=== PATIENT | female | born 1980 | race Caucasian/White ===

== ENCOUNTER 2020-10-25 04:59 | Emergency (ER) | payer BC, SELFPAY ==
[2020-10-25 05:06] VITALS: BP 145/99; PULSE 100; RESP 18; TEMP 36.8; O2SAT 97; BMI 32.5
--- NOTE | 2020-10-25 05:18 | ED_ITS ---
HPI - Back Pain/Injury General: Chief Complaint: Back Pain/Injury Stated Complaint: back pain Time Seen by Provider: 10/25/20 05:11 Source: patient Mode of arrival: ambulatory History of Present Illness: HPI Narrative: Bouchra is a 40-year-old female comes in complaining of low back pain. The pain is chronic but she states that she believes she flared it up at work in the past 2 days. She lifted something heavy at work and believes this may have twisted her back. The pain radiates down to her buttocks. She occasionally has tingling going down her right leg. She denies any loss of bowel or bladder control, numbness in her groin, leg weakness or fever. Patient has abdominal pain, burning when she urinates, upper back pain or pain in the CVA area. Patient states is the same pain she is had numerous times in the past is only been made worse because of something she is done to flared up. Patient states that usually takes pain medicine and muscle relaxers to help get control of her pain. She states she also has at rest of this to make it better. Associated symptoms: Deny abdominal pain, chills, difficulty walking, dysuria, fatigue, fever(s), hematuria, nausea, syncope, urinary urgency or vomiting Review of Systems Const: Denies: fever(s), chills, body aches, fatigue, malaise or diaphoresis Eyes: Denies: change in vision, blurry vision, photophobia, eye discomfort, eye discharge, eye redness or yellow eyes ENMT: Denies: throat pain, odynophagia, hoarseness, swelling of lips/tongue, ear or mastoid pain, ear discharge, change in hearing or nasal discharge Card: Denies: chest pain, palpitations, irregular heart rhythm, edema, lightheadedness, syncope, pre-syncope, dyspnea on exertion or orthopnea Resp: Denies: dyspnea, productive cough, non-productive cough, wheezing, hemoptysis or chest congestion GI: Denies: abdominal pain, nausea, vomiting, hematemesis, coffee ground emesis, heartburn, diarrhea, constipation, GI cramping, hematochezia or melena : Denies: flank pain, dysuria, urinary frequency, urinary urgency or hematuria Musc: Reports: back pain; Denies: neck pain, extremity pain, extremity swelling, joint pain, joint swelling, joint redness, joint warmth or joint stiffness Skin/Breast: Denies: rash, pruritus, erythema, skin pain or skin tenderness Neuro: Denies: headache(s), numbness in extremities, weakness in extremities, sensory changes, lack of coordination, difficulty walking, dizziness, vertigo, confusion, Slurred speech present or seizure-like activity Yasmany/Lymph: Denies: easy bruising, easy bleeding, petechiae, purpura or enlarged lymph nodes All/Imm: Denies: urticaria, throat swelling, tongue swelling, facial swelling or acute wheezing PFSH ED PFSH: Medical History (Updated 10/25/20 @ 05:25 by Flower Abad) Hypothyroidism Surgical History (Updated 10/25/20 @ 05:25 by Flower Abad) History of section, low transverse Female Reproductive History: Date of last menstrual period: 10/25/20 Physical Exam Const: COMMON NORMALS: no acute distress, patient oriented x3, no limitations and alert GENERAL APPEARANCE: cooperative HENMT: COMMON NORMALS: normocephalic, atraumatic, external ears normal, EAC's normal and Normal external nose present HEAD & SCALP: normal to inspection, normocephalic and atraumatic FACE & SINUS: normal facial exam and face symmetric NOSE: Normal external nose present and Normal nares present EXTERNAL EAR: Yes external ears normal EXTERNAL AUDITORY CANAL: EAC's normal MOUTH: Normal oral and palatal mucosa present, lip normal and tongue normal Eye: COMMON NORMALS: Equal, round and reactive pupils present and conjunctivae normal GENERAL EYE: appearance normal, both eyes and all related structures ALIGNMENT: Yes alignment normal PERIORBITAL: periorbital findings normal EYELID: eyelids normal CONJUNCTIVA: Yes conjunctivae normal SCLERA: sclerae normal PUPIL: Yes Equal, round and reactive pupils present Neck/C-Spine: COMMON NORMALS: full ROM, no lymphadenopathy, supple, no meningeal signs and no JVD GENERAL: Yes normal visual inspection and Yes trachea midline Chest: COMMONS NORMALS: normal inspection of the chest and normal palpation of entire chest wall Resp: COMMON NORMALS: normal respiratory effort, No retractions, No use of accessory muscles and clear to auscultation bilaterally EFFORT & INSPECTION: Yes able to speak in complete sentences and Yes symmetric chest movement AUSCULTATION: clear to auscultation bilaterally, no crackles, no rales, no rhonchi and no wheezes Cardio: COMMON NORMALS: no JVD, regular rate, regular rhythm, S1 normal heart sound present and S2 normal heart sound present RATE: regular rate RHYTHM: regular rhythm HEART SOUNDS: S1 normal heart sound present, S2 normal heart sound present, no click, no gallops, no murmurs and no rubs GI: COMMON NORMALS: Soft to palpation and No hepatosplenomegaly present PALPATION: Yes Soft to palpation, No Tenderness to palpation present (GI), No Guarding due to palpation present (GI), No Rigid due to palpation, Yes No hepatosplenomegaly present, No Hernia present, No Palpable mass present and No Pulsatile mass present : COMMON NORMALS: Yes no CVA tenderness BLADDER/KIDNEY EXAM: Yes no CVA tenderness and No CVA tenderness EXTERNAL FEMALE EXAM: No Hernia present Back/Pelvis: COMMON NORMALS: no CVA tenderness and thoracic and lumbar spine normal to inspection GENERAL BACK: No CVA tenderness THORACIC SPINE/UPPER BACK: Yes normal to inspection and Yes thoracic ROM normal LUMBAR SPINE/LOWER BACK: Yes pain with ROM, Yes paraspinal muscle tenderness, Yes paraspinal muscle spasm, Yes straight leg raise positive right and Yes bend over test abnormal Extremity: COMMON NORMALS: normal to inspection, full ROM, capillary refill normal, no joint enlargement, no clubbing, cyanosis or edema and no calf tenderness Neuro: COMMON NORMALS: patient oriented x3, CN's II-XII intact bilaterally, moves all extremities, no focal motor deficits and no sensory deficits noted SENSORIUM/ORIENTATION: Yes alert MENINGEAL SIGNS: Yes no meningeal signs SPEECH: speech normal Psych: COMMON NORMALS: mental status grossly normal, Normal thought process present, cooperative, normal affect, speech normal and activity/motor behavior normal SPEECH: Yes normal speech THOUGHT PROCESS: Normal thought process present Skin: COMMON NORMALS: no rashes or lesions noted, turgor normal, no jaundice, no petechiae and no mottling GENERAL SKIN EXAM: no rashes or lesions noted and turgor normal Course Vital Signs: Vital signs: Vital Signs Temperature 98.2 F 10/25/20 05:06 Pulse Rate 68 10/25/20 05:37 Respiratory Rate 18 10/25/20 05:37 Blood Pressure 112/78 10/25/20 05:37 Pulse Oximetry 98 10/25/20 05:37 MDM - Back Pain/Injury MDM Narrative: Medical decision making narrative: Mrs. Juarez is a very nice 40-year-old female who comes in complaining of low back pain. She has had a chronic problem with this but recently at work she has been bending, stooping and lifting heavy boxes much more than she is used to. She believes this is exacerbated her pain. Patient denies any loss of bowel or bladder control, no saddle anesthesia, no weakness of her extremities, no fever, no abdominal pain or anything else to suggest CRAFTI as a cause for her symptoms. Patient be treated with irrigations for her symptoms. I will refer her to Dr. Graves who specializes in back problems and may be able to assist her further. Differential Diagnosis: Differential diagnosis back pain/injury: Likely lumbar radiculopathy, sciatica, strain of lumbar region, renal colic, pyelonephritis, thoracic back pain, AAA and discitis Discharge Plan Discharge Patient Disposition: Home Clinical Impression: Lumbar radiculopathy Condition: Stable Prescriptions: New cyclobenzaprine 10 mg tablet 10 mg PO TID PRN (Reason: muscle spasm) Qty: 30 RF: 0 [place] 5-325 mg tablet 1 tab PO Q6H PRN (Reason: pain) 5 Days Qty: 12 RF: 0 Discharge Orders: Discharge ED (Routine); Ordered 10/25/20 Ordered By: Flower Abad Referrals: Buck Garves DO [Physician] - 1-3 days Discharge Diet: Advance as tolerated Discharge Activity: Resume usual activity Patient Instructions: Lumbar Radiculopathy (ED) Activity Restrictions/Additional Instructions: Please return to the ER immediately for any of the signs or symptoms listed on your discharge instruction sheets, worsening/changing of your symptoms, you are not getting better as quickly as expected, or for ANY other cause or concerns. Return to the ER for increased pain, fever, abdominal pain, loss of bowel or bladder control, numbness in her groin, or for any other cause for concern. 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
[2020-10-25] MEDS: cyclobenzaprine 10 mg Tablet PO (05:29)
[2020-10-25] MEDS: HYDROcodone-acetaminophen 5-325 mg Tablet 1 TAB PO (05:29)
[2020-10-25] MEDS: ketorolac 60 mg/2 mL INJ IM (05:30)
[2020-10-25 05:37] VITALS: BP 112/78; PULSE 68; RESP 18; O2SAT 98
== END 2020-10-25 05:39 | disposition home or self-care (01) ==
PROVIDERS: Emergency Provider Emergency Medicine
DX: M54.16 Radiculopathy, lumbar region (principal)
CPT/HCPCS: 12345; 96372; 99281; 99283; J1885

== ENCOUNTER → 2020-10-27 13:12 | Outpatient (BNVA) | payer BC, SELFPAY | PROVIDERS: Visit Provider Orthopaedic Surgery | DX: M54.16 Radiculopathy, lumbar region (principal); M47.896 Other spondylosis, lumbar region | CPT/HCPCS: 72114 ==

== ENCOUNTER 2020-11-09 09:04 | Outpatient (CLI) | payer BC, SELFPAY ==
--- NOTE | 2020-11-09 09:12 | MR_ITS ---
WS: [id number] MRI LUMBAR SPINE NONCONTRAST TECHNIQUE: Sagittal T1, T2 and STIR imaging. Axial T1 and T2 imaging. CLINICAL INFORMATION: M54.16 - Radiculopathy, lumbar region COMPARISON: None. FINDINGS: Mild lumbar curve. No acute compression. Mild disc bulging L4-L5 and L5-S1. Tiny annular tear at L5-S 1. No high-grade central canal stenosis. L1-L2: Normal. L2-L3: Mild facet arthropathy. Spinal canal and foramen are patent. L3-L4: No significant disc bulging. Mild facet arthropathy. Spinal canal and foramen are patent. L4-L5: Mild disc bulging with slight effacement of the ventral thecal sac. Mild to moderate facet art hropathy. Small bilateral foraminal protrusions with mild bilateral foraminal narrowing. L5-S1: Mild annular bulging with a tiny annular fissure. Slight effacement of ventral thecal sac. Tin y shallow central protrusion. Spinal canal and foramen are patent. Mild facet arthropathy. Visualized pelvic bony structures: Normal. Paravertebral soft tissues: Normal. MR/MR lumbar spine wo con* [id number] IMPRESSION: 1. Mild lumbar curve. No acute compression. No high-grade central canal stenos is. 2. Tiny shallow central protrusion L5-S1 with a tiny annular tear and slight e ffacement of the ventral thecal sac. 3. Small bilateral foraminal protrusions L4-5 with mild bilateral foraminal na rrowing. 4. Mild facet arthropathy L3-L5.
== END 2020-11-09 09:05 | disposition home or self-care (01) ==
LOC: RADWPI 09:08
PROVIDERS: Visit Provider Orthopaedic Surgery
DX: M54.16 Radiculopathy, lumbar region (principal); M47.816 Spondylosis without myelopathy or radiculopathy, lumbar region; M51.26 Other intervertebral disc displacement, lumbar region; M51.27 Other intervertebral disc displacement, lumbosacral region
CPT/HCPCS: 72148

== ENCOUNTER → 2021-06-14 10:55 | Outpatient (BNVA) | payer BC, SELFPAY | PROVIDERS: Visit Provider Family Medicine | DX: E89.0 Postprocedural hypothyroidism (principal); G89.29 Other chronic pain; M51.16 Intervertebral disc disorders with radiculopathy, lumbar region | CPT/HCPCS: 80053; 85025 ==

== ENCOUNTER 2021-07-05 11:39 | Outpatient (RCR) | payer BC, SELFPAY | END 2021-07-11 23:59 | disposition home or self-care (01) | LOC: SPT 11:39 | PROVIDERS: PCP Family Medicine; Referring Provider Family Medicine; Visit Provider Family Medicine | DX: M51.16 Intervertebral disc disorders with radiculopathy, lumbar region (principal); G89.29 Other chronic pain; E89.0 Postprocedural hypothyroidism; E03.9 Hypothyroidism, unspecified; Z76.89 Persons encountering health services in other specified circumstances | CPT/HCPCS: 97161 ==

== ENCOUNTER 2021-07-12 06:00 | Outpatient (RCR) | payer BC, SELFPAY | END 2021-08-10 23:59 | disposition home or self-care (01) | LOC: SPT 06:00 | PROVIDERS: PCP Family Medicine; Referring Provider Family Medicine; Visit Provider Family Medicine | DX: M51.16 Intervertebral disc disorders with radiculopathy, lumbar region (principal); M54.5 Low back pain; G89.29 Other chronic pain; E89.0 Postprocedural hypothyroidism; E03.9 Hypothyroidism, unspecified | CPT/HCPCS: 97110 ==

== ENCOUNTER → 2021-08-01 10:35 | Outpatient (BNVA) | payer BC, SELFPAY | PROVIDERS: PCP Family Medicine; Visit Provider Nurse Practitioner Family | DX: Z20.822 Contact with and (suspected) exposure to COVID-19 (principal) | CPT/HCPCS: 87426 ==

== ENCOUNTER → 2021-08-14 16:26 | Outpatient (BNVA) | payer BC, SELFPAY | PROVIDERS: PCP Family Medicine; Visit Provider Family Medicine | DX: R10.9 Unspecified abdominal pain (principal); R11.2 Nausea with vomiting, unspecified; R19.7 Diarrhea, unspecified; M51.16 Intervertebral disc disorders with radiculopathy, lumbar region; G89.29 Other chronic pain | CPT/HCPCS: 80053; 83690; 85025; 86140; 87493; 87506 ==

== ENCOUNTER → 2021-08-30 10:09 | Outpatient (BNVA) | payer BC, SELFPAY | PROVIDERS: PCP Family Medicine; Visit Provider Nurse Practitioner Family | DX: Z20.822 Contact with and (suspected) exposure to COVID-19 (principal); J06.9 Acute upper respiratory infection, unspecified | CPT/HCPCS: 87635 ==

== ENCOUNTER 2021-09-20 06:48 | Outpatient (CLI) | payer BC, SELFPAY ==
--- NOTE | 2021-09-20 06:51 | US_ITS ---
WS: [id number] RIGHT UPPER QUADRANT ULTRASOUND HISTORY: RUQ pain, post-prandial N/V/D COMPARISON: None available. Liver: 17.2 cm in length. Normal size liver. No bile duct dilatation or mass. Gallbladder: Normally distended gallbladder with no stones or wall thickening. CBD: 0.5 cm Pancreas: Normal size and echogenicity. Right kidney: 11.7 cm in length. Normal size and echogenicity. No hydronephrosis or mass. Aorta and IVC: Unremarkable abdominal aorta and IVC. No ascites. US/US abdomen limited [id number] IMPRESSION: Normal RIGHT upper quadrant ultrasound.
== END 2021-09-20 06:49 | disposition home or self-care (01) ==
LOC: RAD 06:49
PROVIDERS: PCP Family Medicine; Visit Provider Family Medicine
DX: R10.13 Epigastric pain (principal); R11.2 Nausea with vomiting, unspecified; R19.7 Diarrhea, unspecified
CPT/HCPCS: 76705; 93976

== ENCOUNTER → 2021-11-27 09:21 | Outpatient (BNVA) | payer BC, SELFPAY | PROVIDERS: PCP Family Medicine; Visit Provider Nurse Practitioner Family | DX: Z20.822 Contact with and (suspected) exposure to COVID-19 (principal) | CPT/HCPCS: 87635 ==

== ENCOUNTER 2022-09-26 15:35 | Emergency (ER) | payer BC, SELFPAY ==
[2022-09-26 15:40] VITALS: BP 130/89; PULSE 96; RESP 14; TEMP 36.9; O2SAT 100; BMI 28.5
--- NOTE | 2022-09-26 16:13 | ED_ITS ---
HPI - Ear Problem General: Chief complaint: Ear Stated complaint: Right ear pain and bleeding Time Seen by Provider: 09/26/22 15:44 History of Present Illness: Patient is a 42-year-old female comes to the ED with right ear pain. She has been dealing with sinus congestion and drainage for approximately a week. Today she felt like she had a lot of pressure in her sinuses and started getting pain in her right ear. Pain has increased and she rates it currently a 7 out of 10. She endorses having a bloody discharge from right ear as well. Endorses having a harder time hearing out of right ear says sounds are muffled in right ear. Associated symptoms: Reports ear or mastoid pain (Right ear); Denies fever(s), headache(s) or neck pain Review of Systems Const: Denies: fever(s), chills or fatigue Eyes: Denies: change in vision or eye discomfort ENMT: Reports: ear or mastoid pain (Right ear) and ear discharge (Right ear bloody discharge); Denies: throat pain, odynophagia, nasal discharge or nasal congestion Card: Denies: chest pain, palpitations, edema, swelling of feet/ankles, dyspnea on exertion or orthopnea Resp: Denies: dyspnea, productive cough or non-productive cough GI: Denies: abdominal pain, nausea, vomiting, diarrhea, constipation or hematochezia : Denies: flank pain, dysuria or hematuria Musc: Denies: neck pain, back pain or extremity swelling Skin/Breast: Denies: rash or new lesions Neuro: Denies: headache(s), numbness in extremities or weakness in extremities PFS ED PFSH: Medical History Hypothyroidism Surgical History History of section, low transverse Social History Smoking and tobacco status: never smoked Second hand smoke exposure: No Alcohol intake: current Alcohol intake frequency: holidays/special occasions only Desire information about substance/drug rehabilitation?: No Female Reproductive History: Date of last menstrual period: 10/25/20 Spontaneous abortions: No Physical Exam Const: COMMON NORMALS: patient oriented x3 and alert GENERAL APPEARANCE: cooperative and comfortable HENMT: COMMON NORMALS: normocephalic and external ears normal HEAD & SCALP: normocephalic EXTERNAL EAR: Yes external ears normal EXTERNAL AUDITORY CANAL: Abnormal EAC present EAC laterality: right Details: otic discharge Details: bloody TYMPANIC MEMBRANE: TM normal on the left and TM abnormal TM laterality: right Details: bulging, erythematous and perforation Details: with bloody discharge MOUTH: Normal oral and palatal mucosa present THROAT: posterior oropharynx normal and uvula midline Neck/C-Spine: COMMON NORMALS: supple GENERAL: Yes normal visual inspection Resp: COMMON NORMALS: normal respiratory effort, No retractions, No use of accessory muscles and clear to auscultation bilaterally AUSCULTATION: clear to auscultation bilaterally Cardio: COMMON NORMALS: regular rate, regular rhythm, S1 normal heart sound present, S2 normal heart sound present, No gallops present (Cardio), No clicks present (Cardio), No murmurs present (Cardio) and Peripheral pulses 2+ throughout RATE: regular rate RHYTHM: regular rhythm HEART SOUNDS: S1 normal heart sound present and S2 normal heart sound present PERIPHERAL PULSES: Peripheral pulses 2+ throughout GI: COMMON NORMALS: Normal to inspection, nondistended, normoactive bowel sounds present, Soft to palpation, non-tender and no masses PALPATION: Yes Soft to palpation : COMMON NORMALS: Yes no CVA tenderness BLADDER/KIDNEY EXAM: Yes no CVA tenderness Back/Pelvis: COMMON NORMALS: no CVA tenderness Extremity: COMMON NORMALS: normal to inspection Neuro: COMMON NORMALS: patient oriented x3 SENSORIUM/ORIENTATION: Yes alert GAIT: Yes Normal gait present Skin: GENERAL SKIN EXAM: dry skin Course Vital Signs: Vital signs: Vital Signs Temperature 98.4 F 09/26/22 15:40 Pulse Rate 96 09/26/22 15:40 Respiratory Rate 14 09/26/22 15:40 Blood Pressure 130/89 09/26/22 15:40 Pulse Oximetry 100 09/26/22 15:40 Oxygen Delivery Me thod 09/26/22 15:40 MDM - Ear Medical Decision Making Patient is a 42-year-old female comes to the ED with right ear pain and bloody discharge from ear. Exam of patient shows right ear otitis media with perforation and bloody discharge in canal. I placed order with case management for patient to be referred to ENT specialist for follow-up. Patient was discharged home with a prescription for amoxicillin and Ciprodex eardrops. Return ED precautions given. Follow-up with PCP within the next week as well for reevaluation. Patient understood and agreed with plan Discharge Plan Discharge Patient Disposition: Home Clinical Impression: Acute otitis media of right ear with perforation Condition: Stable Prescriptions: New amoxicillin 500 mg capsule 500 mg PO BID 10 Days Qty: 20 0RF ciprofloxacin-dexamethasone 0.3-0.1 % drops,suspension 4 drp otic (ear) BID 7 Days Qty: 7.5 0RF No Action fluticasone propionate [Allergy Relief (fluticasone)] 50 mcg/actuation spray,suspension 1 spray intranasal DAILY Rx Instructions: administer into each nostril buspirone 5 mg tablet 5 mg PO TID PRN (Reason: anxiety) Qty: 60 2RF tizanidine 4 mg tablet 4 mg PO BID PRN (Reason: muscle spasticity) Qty: 60 2RF levothyroxine [Levo-T] 25 mcg tablet 25 mcg PO DAILY Qty: 90 3RF Discharge Orders: Discharge ED (Routine); Ordered 09/26/22 Ordered By: Antonio Moon Referrals: Noah Fernandez DO [Primary Care Provider] - Discharge Diet: Regular Discharge Activity: Increase activity as tolerated Patient Instructions: Otitis Media - Adult, Ruptured Eardrum (ED) Activity Restrictions/Additional Instructions: Follow-up with medical provider as directed. Case management should be calling you in the next several days to set up an appointment with an ear nose and throat doctor for follow-up right ear. Take medications as prescribed. Take [id number] Tylenol or ibuprofen for pain. Return to the ER or your medical provider if condition worsens. Please read and understand discharge instructions. Thank you for choosing [facility] for your healthcare needs today. Please realize this is an emergency room and that we are providing you with a medical screening exam and this may not be complete and all inclusive of all the testing and or work up that you may need to determine your ailment or severity of your illness. It is very important that you follow up as instructed or that you return to the Emergency Department should you have concerns or if your condition changes or worsens in any way. 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
[2022-09-26] MEDS: HYDROcodone-acetaminophen 5-325 mg Tablet 1 TAB PO (16:30)
[2022-09-26 16:31] VITALS: BP 130/68; PULSE 97; RESP 16; TEMP 36.9; O2SAT 100
--- NOTE | 2022-09-27 09:25 | PC.SOCIAL ---
Addendum entered by Monik Dukes 12/14/22 14:28: Patient had a follow up appointment scheduled with ENT - patient did attend appointment Addendum entered by Monik Dukes 10/31/22 12:47: Patient has a follow up appointment scheduled for Saturday, November 21, 2021 at 10:00 at ENT. Clinic will call patient with appointment information. Original Note: ENT Follow-Up Consult received for ENT follow up. Sent to ENT scheduling. Clinic to contact patient with appt date/time.
== END 2022-09-26 16:35 | disposition home or self-care (01) ==
PROVIDERS: Emergency Provider Physician Assistant; PCP Family Medicine
DX: H66.91 Otitis media, unspecified, right ear (principal); H72.91 Unspecified perforation of tympanic membrane, right ear
CPT/HCPCS: 99283

== ENCOUNTER 2023-06-15 11:26 | Emergency (ER) | payer OTHER, SELFPAY ==
[2023-06-15 11:29] VITALS: BP 124/80; PULSE 103; RESP 16; TEMP 36.3; O2SAT 100
--- NOTE | 2023-06-15 11:38 | ECG_ITS ---
[facility] Test Date: 2023-06-15 Pat Name: Bouchra Francis Department: Room: Gender: Female Clinical Writer: : 1980 Requested By: Alex Lindo Order Number: [id number] Moshe MD: Syed Guillen M.D. Measurements Intervals [place] Rate: 91 P: 67 MN: 148 QRS: 74 QRSD: 93 T: 50 QT: 363 QTc: 448 Interpretive Statements SINUS RHYTHM NONSPECIFIC T-WAVE ABNORMALITY No previous ECG available for comparison Electronically Signed On 06-15-2023 13:09:33 CDT by Syed Guillen M.D. [email or web address]
--- NOTE | 2023-06-15 12:25 | W.ED.CHESTPA ---
HPI - Chest Pain General: Chief Complaint: Chest Pain Stated Complaint: High HR, High BP Time Seen by Provider: 06/15/23 12:09 History of Present Illness: Ms. Juarez is a 43-year-old lady with history of thyroid disorder status post thyroidectomy presented the emergency department for generalized illness. She woke up with palpitations that woke her from sleep at approximately 8 AM. She has had heart rate at that time that was 80s however notes that her blood pressure was higher and a little bit of pulse variability. She has associated shortness of breath generalized malaise with chest discomfort. She feels slowed though also has a headache and history of headache disorder with left-sided throbbing headache. She does have photosensitivity. Moderate intensity symptoms. Persistent course. No other specific changes in health, exacerbating, or alleviating factors identified. Onset (ago): hour(s) Timing of current episode: constant Exacerbating factors: exertion Associated symptoms: Reports dyspnea, nausea, palpitations and other Review of Systems General: Reports: 10 or more systems reviewed and unremarkable except in HPI and below Card: Reports: palpitations Resp: Reports: dyspnea GI: Reports: nausea PFSH ED PFSH: Medical History Graves disease Hx of meningitis Hypothyroidism Menorrhagia Thyroid toxicity, exogenous Surgical History History of section, low transverse Social History Smoking and tobacco status: current every day smoker e-cigarettes E-Cigarette Details: vaporizer device and with nicotine Second hand smoke exposure: No Alcohol intake: current Alcohol intake frequency: holidays/special occasions only Substance/Drug Use: former Desire information about substance/drug rehabilitation?: No Female Reproductive History: Spontaneous abortions: No Physical Exam Const: COMMON NORMALS: patient oriented x3 and alert GENERAL APPEARANCE: cooperative and well developed HENMT: COMMON NORMALS: normocephalic and atraumatic HEAD & SCALP: normocephalic and atraumatic Eye: COMMON NORMALS: conjunctivae normal CONJUNCTIVA: Yes conjunctivae normal SCLERA: sclerae normal Neck/C-Spine: COMMON NORMALS: supple GENERAL: Yes trachea midline Resp: COMMON NORMALS: clear to auscultation bilaterally EFFORT & INSPECTION: Yes able to speak in complete sentences AUSCULTATION: clear to auscultation bilaterally Cardio: COMMON NORMALS: regular rate and regular rhythm RATE: regular rate RHYTHM: regular rhythm GI: COMMON NORMALS: Soft to palpation PALPATION: Yes Soft to palpation and No Tenderness to palpation present (GI) Extremity: GENERAL: Yes normal exam except as noted and No edema Neuro: COMMON NORMALS: patient oriented x3, CN's II-XII intact bilaterally, moves all extremities, no focal motor deficits and no sensory deficits noted SENSORIUM/ORIENTATION: Yes alert and No Orientation impaired Psych: COMMON NORMALS: mental status grossly normal and Normal thought process present THOUGHT PROCESS: Normal thought process present Course Vital Signs: Vital signs: Vital Signs Temperature 97.4 F L 06/15/23 11:29 Pulse Rate 78 06/15/23 16:53 Respiratory Rate 18 06/15/23 16:53 Blood Pressure 114/66 06/15/23 13:44 Pulse Oximetry 97 06/15/23 16:53 Oxygen Delivery Me thod Room Air 06/15/23 11:29 MDM - Chest Pain Medical Decision Making 43-year-old lady presenting with heart rate abnormality and generalized illness. Exam as above. Nontoxic. No focal neurodeficits. EKG demonstrates sinus rhythm with normal axis and intervals, no STEMI. EKG with no significant hematologic or metabolic abnormality to explain symptoms. Elevated TSH with low free T4 though clinical history is not consistent with myxedema coma. No clear evidence of UTI given absence of symptoms and squamous epithelial contamination. No COVID. Chest x-ray with no lobar consolidation or pneumothorax. Somewhat improved with antiemetic, analgesia, fluids. The results of ED evaluation were discussed with the patient including prescriptions and/or symptomatic cares (if applicable) including appropriate and responsible use, followup plan, and return precautions. The patient verbalized understanding and felt safe for discharge. Medical Records I reviewed the patient's medical records. Lab Data I reviewed the patient's lab results. 06/15/23 13:12 06/15/23 13:12 Radiology Impressions Chest X-Ray 06/15/23 12:32 IMPRESSION: Mild hyperexpansion without pneumonia. Laboratory Results WBC 8.3 10^3/uL (4.0-10.0) 06/15/23 13:12 RBC 4.55 10^6/uL (4.1-5.3) 06/15/23 13:12 Hgb 13.1 g/dL (11.5-15.3) 06/15/23 13:12 Hct 41.0 % (37.0-47.0) 06/15/23 13:12 MCV 90.1 fl (81-99) 06/15/23 13:12 MCH 28.8 pg (28.0-34.0) 06/15/23 13:12 MCHC 32.0 g/dL (30.0-36.0) 06/15/23 13:12 RDW 12.3 % (12.1-15.1) 06/15/23 13:12 Plt Count 215 10^3/cmm (130-400) 06/15/23 13:12 MPV 9.8 fL (7.4-10.4) 06/15/23 13:12 Neut % (Auto) 50.2 % 06/15/23 13:12 Lymph % (Auto) 37.2 % 06/15/23 13:12 [place] % (Auto) 10.9 % 06/15/23 13:12 Eos % (Auto) 0.8 % 06/15/23 13:12 Baso % (Auto) 0.7 % 06/15/23 13:12 Neut # (Auto) 4.13 10^3/uL (1.8-7.7) 06/15/23 13:12 Lymph # (Auto) 3.1 10^3/uL (0.8-4.8) 06/15/23 13:12 [place] # (Auto) 0.9 10^3/uL (0.2-0.9) 06/15/23 13:12 Eos # (Auto) 0.1 10^3/uL (0.0-0.8) 06/15/23 13:12 Baso # (Auto) 0.1 10^3/uL (0.0-0.1) 06/15/23 13:12 Nucleated RBC % (auto) 0 % 06/15/23 13:12 Nucleated RBCs # 0.0 /100WBC 06/15/23 13:12 Sodium 140 mmol/L (136-145) 06/15/23 13:12 Potassium 4.4 mmol/L (3.5-5.1) 06/15/23 13:12 Chloride 107 mmol/L (98-107) 06/15/23 13:12 Carbon Dioxide 24 mmol/L (22-29) 06/15/23 13:12 Anion Gap 13.4 (5-19) 06/15/23 13:12 BUN 11 mg/dL (6-20) 06/15/23 13:12 Creatinine 0.8 mg/dL (0.5-0.9) 06/15/23 13:12 GFR Calculation 79.0 mL/min (90-130) L 06/15/23 13:12 Glucose 71 mg/dL (65-115) 06/15/23 13:12 Calculated Osmolality 288 mOsm/kg (285-295) 06/15/23 13:12 Calcium 8.8 mg/dL (8.5-10.5) 06/15/23 13:12 Magnesium 2.1 mg/dL (1.7-2.3) 06/15/23 13:12 Total Bilirubin 0.2 mg/dL (0.15-1.2) 06/15/23 13:12 AST 11 U/L (0-32) 06/15/23 13:12 ALT 9 U/L (0-33) 06/15/23 13:12 Alkaline Phosphatase 60 U/L (35-105) 06/15/23 13:12 Troponin T Baseline 6 ng/L (0-10) 06/15/23 13:12 Total Protein 6.9 g/dL (6.6-8.7) 06/15/23 13:12 Albumin 4.3 g/dL (3.5-5.2) 06/15/23 13:12 Globulin 2.6 g/dL (1.3-4.6) 06/15/23 13:12 TSH 36.71 uIU/mL (0.27-4.20) H 06/15/23 13:12 Free T4 0.53 ng/dL (0.82-1.77) L 06/15/23 13:12 Urine Color Straw (Yellow) 06/15/23 13:57 Urine Appearance Clear (CLEAR) 06/15/23 13:57 Urine pH 5 (5-7) 06/15/23 13:57 Ur Specific [place] 1.025 (1.005-1.030) 06/15/23 13:57 Urine Protein Neg (Negative) 06/15/23 13:57 Urine Glucose (UA) Norm (Normal) 06/15/23 13:57 Urine Ketones 1+ (Negative) H 06/15/23 13:57 Urine Blood Neg (Negative) 06/15/23 13:57 Urine Nitrate Negative (Negative) 06/15/23 13:57 Urine Bilirubin Neg (Negative) 06/15/23 13:57 Urine Urobilinogen Norm mg/dL (Negative) 06/15/23 13:57 Ur Leukocyte Esterase Trace (Negative) H 06/15/23 13:57 Urine RBC None /hpf (0-2) 06/15/23 13:57 Urine WBC 0-4 /hpf (0-5) H 06/15/23 13:57 Ur Squamous Epith Cells 5-10 /hpf (0-5) H 06/15/23 13:57 Amorphous Sediment Not Reportable 06/15/23 13:57 Urine Bacteria 1+ /hpf (NONE) H 06/15/23 13:57 Urine Mucus 1+ /hpf 06/15/23 13:57 SARS-CoV-2 Ag (Rapid) negative (Negative) 06/15/23 13:28 Discharge Plan Discharge Patient Disposition: Home Clinical Impression: Malaise and fatigue, Palpitations, Headache, Abnormal finding on thyroid function test Condition: Stable Prescriptions: No Action fluticasone propionate [Allergy Relief (fluticasone)] 50 mcg/actuation spray,suspension 1 spray intranasal TID Rx Instructions: administer into each nostril Excedrin Migraine 250-250-65 mg Tablet 3 tab PO Q6H PRN (Reason: Migraine Headache) Euthyrox 25 mcg tablet 25 mcg PO DAILY@1530 Discharge Orders: Discharge ED (Routine); Ordered 06/15/23 Ordered By: Alex Lindo Referrals: Noah Fernandez DO [Primary Care Provider] - Discharge Diet: Usual diet Discharge Activity: Increase activity as tolerated Patient Instructions: Chest Pain (ED) Activity Restrictions/Additional Instructions: Thank you for visiting the emergency department. You were seen about for generalized illness with palpitations. The exact cause of your symptoms is unclear however does not appear to need hospitalization at this time. Your free T4 is low. Please follow-up with your primary care provider. You may use [id number] medications such as acetaminophen and ibuprofen for pain however please do not exceed the daily recommended dosage as listed on the packaging and please keep in mind that many namebrand medications contain the same active ingredients. Please avoid these medications if previously instructed to do so by another physician due to other underlying medical condition. Please ensure that you are staying hydrated. Return for anything that you are concerned about and feel needs emergency department evaluation Coding Level of Care Code ED Requirements Engineer for Hiwot Bravo
--- NOTE | 2023-06-15 12:29 | ECG_ITS ---
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 Measurements Intervals [place] Rate: 78 P: 58 AR: 158 QRS: 71 QRSD: 97 T: 56 QT: 374 QTc: 427 Interpretive Statements SINUS RHYTHM Compared to ECG 06/15/2023 11:41:43 T-wave abnormality no longer present Electronically Signed On 06-16-2023 19:39:53 CDT by Syed Guillen M.D. [id number]
--- NOTE | 2023-06-15 12:32 | XR_ITS ---
WS: [id number] PORTABLE CHEST HISTORY: sob COMPARISON: None available. Very mild hyperinflation. Probably related to smoking history. No pneumonia. No pleural effusion or p neumothorax. Cardiac size: Normal. Mediastinum/Aorta: Normal mediastinum. No osseous abnormality seen. XR/XR chest 1V portable [id number] IMPRESSION: Mild hyperexpansion without pneumonia.
[2023-06-15] MEDS: sodium chloride 0.9% 1,000 ML 999 ML IV (13:06)
[2023-06-15] MEDS: metoclopramide 5 mg/mL SDV 2 mL 10 MG IVP (13:06)
[2023-06-15] MEDS: ketorolac 30 mg/mL INJ 15 MG IVP (13:07)
[2023-06-15 13:32] LABS: Basophils # 0.1 10^3/uL (0.0-0.1); Basophils % 0.7 %; Eosinophils # 0.1 10^3/uL (0.0-0.8); Eosinophils % 0.8 %; Hemoglobin 13.1 g/dL (11.5-15.3); Lymphocytes # 3.1 10^3/uL (0.8-4.8); Lymphocytes % 37.2 %; Mean Corpuscular Hemoglobin 28.8 pg (28.0-34.0); Mean Corpuscular Volume 90.1 fl (81-99); Mean Platelet Volume 9.8 fL (7.4-10.4); Monocytes # 0.9 10^3/uL (0.2-0.9); Monocytes % 10.9 %; Neutrophils # 4.13 10^3/uL (1.8-7.7); Neutrophils % 50.2 %; Nucleated Red Blood Cells % 0 %; Platelet Count 215 10^3/cmm (130-400); Red Blood Count 4.55 10^6/uL (4.1-5.3); Red Cell Distribution Width 12.3 % (12.1-15.1); White Blood Count 8.3 10^3/uL (4.0-10.0)
[2023-06-15 13:44] VITALS: BP 114/66; PULSE 72; RESP 16; O2SAT 98
[2023-06-15 13:54] LABS: Troponin(5th) Baseline 6 ng/L (0-10)
[2023-06-15 14:00] LABS: SARS Covid-2 Antigen negative (Negative)
[2023-06-15 14:01] LABS: Alanine Aminotransferase 9 U/L (0-33); Albumin Level 4.3 g/dL (3.5-5.2); Alkaline Phosphatase 60 U/L (35-105); Anion Gap 13.4 (5-19); Aspartate Amino Transferase 11 U/L (0-32); Blood Urea Nitrogen 11 mg/dL (6-20); Calcium 8.8 mg/dL (8.5-10.5); Carbon Dioxide 24 mmol/L (22-29); Chloride 107 mmol/L (98-107); Globulin 2.6 g/dL (1.3-4.6); Glucose 71 mg/dL (65-115); Magnesium 2.1 mg/dL (1.7-2.3); Osmolality Calculated 288 mOsm/kg (285-295); Potassium 4.4 mmol/L (3.5-5.1); Sodium 140 mmol/L (136-145); Thyroid Stimulating Hormone 36.71 uIU/mL (0.27-4.20); Total Bilirubin 0.2 mg/dL (0.15-1.2); Total Protein 6.9 g/dL (6.6-8.7)
[2023-06-15 14:25] LABS: Add Urine Microscopic? YES; Bacteria Urine 1+ /hpf; Bilirubin Urine Neg (Negative); Blood Urine Neg (Negative); Glucose Urine UA Norm (Normal); Ketones Urine 1+ (Negative); Leukocyte Esterase Urine Trace (Negative); Mucus Urine 1+ /hpf; Nitrate Urine Negative (Negative); Protein Urine Neg (Negative); Specific Gravity, Urine 1.025 (1.005-1.030); Urine Appearance Clear (CLEAR); Urine Color Straw (Yellow); Urobilinogen Urine Norm (Negative); WBC Urine 0-4 /hpf (0-5); pH Urine 5 (5-7)
[2023-06-15 14:26] LABS: Add Urine Culture? No
--- NOTE | 2023-06-15 14:46 | ECG_ITS ---
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 Measurements Intervals [place] Rate: 65 P: 46 MO: 168 QRS: 60 QRSD: 90 T: 52 QT: 401 QTc: 418 Interpretive Statements SINUS RHYTHM Compared to ECG 06/15/2023 12:29:31 No significant changes Electronically Signed On 06-16-2023 19:57:24 CDT by Syed Guillen M.D. [id number]
[2023-06-15 15:00] VITALS: PULSE 77; RESP 16
[2023-06-15 15:23] LABS: Free T4 Free Thyroxine 0.53 ng/dL (0.82-1.77)
--- NOTE | 2023-06-15 15:28 | PC.NURSE ---
Patient refused 2Hour trop level to be drawn. Patient stated it is not needed. MD made aware. 2hour trop canceled.
[2023-06-15 16:53] VITALS: PULSE 78; RESP 18; O2SAT 97
== END 2023-06-15 16:56 | disposition home or self-care (01) ==
PROVIDERS: Emergency Provider Emergency Medicine; PCP Family Medicine
DX: R00.2 Palpitations (principal); R51.9 Headache, unspecified; R53.81 Other malaise; R53.83 Other fatigue; R94.6 Abnormal results of thyroid function studies; Z20.822 Contact with and (suspected) exposure to COVID-19; F17.290 Nicotine dependence, other tobacco product, uncomplicated
CPT/HCPCS: 71045; 80053; 81001; 83735; 84439; 84443; 84484; 85025; 87426; 93005; 96374; 96375; 99285; J1885; J2765; J7030

== ENCOUNTER → 2023-10-31 10:27 | Outpatient (BNVA) | payer OTHER, SELFPAY | PROVIDERS: PCP Family Medicine; Visit Provider Family Medicine | DX: E03.9 Hypothyroidism, unspecified (principal) | CPT/HCPCS: 80053; 84439; 84443; 85025 ==

== ENCOUNTER 2024-03-21 05:38 | Emergency (ER) | payer OTHER, SELFPAY ==
--- NOTE | 2024-03-21 05:40 | XRR_ITS ---
PROCEDURE INFORMATION: Exam: XR Chest Exam date and time: 03/21/2024 5:55 AM Age: 44 years old Clinical indication: Chest pressure; Patient HX: C/O chest pain TECHNIQUE: Imaging protocol: Radiologic exam of the chest. Views: 1 view. COMPARISON: CR XR chest 1V portable [id number] 06/15/2023 12:39 PM FINDINGS: Lungs: Unremarkable. No consolidation. Pleural spaces: Unremarkable. No pleural effusion. No pneumothorax. Heart/Mediastinum: Unremarkable. No cardiomegaly. Bones/joints: Unremarkable. XR/XR chest 1V portable [id number] IMPRESSION: No acute findings.
[2024-03-21 05:42] VITALS: BP 169/122; PULSE 92; RESP 18; TEMP 36.8; O2SAT 99; BMI 34.7
--- NOTE | 2024-03-21 05:43 | ECG_ITS ---
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 Measurements Intervals [place] Rate: 84 P: 56 [place]: 156 QRS: 64 QRSD: 84 T: 55 QT: 370 QTc: 438 Interpretive Statements SINUS RHYTHM WITH OCCASIONAL VENTRICULAR PREMATURE COMPLEXES POSSIBLE LEFT ATRIAL ENLARGEMENT [-0.1mV P-WAVE IN V1/V2] Compared to ECG 06/15/2023 14:46:11 Ventricular premature complex(es) now present Electronically Signed On 03-21-2024 19:50:31 CDT by Syed Guillen M.D. [id number]
--- NOTE | 2024-03-21 05:49 | ED_ITS ---
Documented by User: Navin Ji DO 03/21/24 05:52 HPI - Chest Pain 2 General: Chief Complaint: Chest Pain Stated Complaint: CP Time Seen by Provider: 03/21/24 05:40 History of Present Illness: Patient presents to the ER complaining of chest pain and palpitations. States she been having palpitations on a daily basis for about the last 3 months or so. She has also had intermittent chest pain during this time. Patient states that this chest pain this time started about 5:00 at work. She was not do anything strenuous. Patient denies any nausea vomiting diaphoresis or shortness of breath. Patient is on a thyroid medicine that she says she has been taking. Review of Systems 2 General: Reports: 10 or more systems reviewed and unremarkable except in HPI and below PFSH ED 2 PFSH: Medical History Graves disease Thyroid toxicity, exogenous Hx of meningitis Menorrhagia Hypothyroidism Surgical History History of section, low transverse Social History Smoking and tobacco/nicotine status: current every day tobacco/nicotine user e- cigarettes E-Cigarette Details: vaporizer device and with nicotine Second hand smoke exposure: No Alcohol intake: current Alcohol intake frequency: holidays/special occasions only Substance/Drug Use: current Substance/Drug use frequency: daily Female Reproductive History: Spontaneous abortions: No Physical Exam 2 Const: COMMON NORMALS: no acute distress, average body habitus, patient oriented x3, no limitations, healthy appearing, alert and well nourished HENMT: COMMON NORMALS: normocephalic, atraumatic, hearing grossly normal bilaterally, external ears normal, Normal external nose present, moist oral mucous membranes and oropharynx normal HEAD & SCALP: normocephalic and atraumatic NOSE: Normal external nose present EXTERNAL EAR: Yes external ears normal Neck/C-Spine: COMMON NORMALS: no JVD Chest: COMMONS NORMALS: normal inspection of the chest and normal palpation of entire chest wall Resp: COMMON NORMALS: normal respiratory effort, No retractions, No use of accessory muscles and clear to auscultation bilaterally AUSCULTATION: clear to auscultation bilaterally Cardio: COMMON NORMALS: no JVD, regular rate, regular rhythm, S1 normal heart sound present, S2 normal heart sound present, No gallops present (Cardio), No clicks present (Cardio), No murmurs present (Cardio) and No rub (Cardio) R ATE: regular rate RHYTHM: regular rhythm HEART SOUNDS: S1 normal heart sound present and S2 normal heart sound present GI: COMMON NORMALS: Normal to inspection, nondistended, normoactive bowel sounds present, Soft to palpation, non-tender and No hepatosplenomegaly present PALPATION: Yes Soft to palpation and Yes No hepatosplenomegaly present Neuro: COMMON NORMALS: patient oriented x3 SENSORIUM/ORIENTATION: Yes alert Course 2 Vital Signs: Vital signs: Vital Signs Temperature 98.3 F 03/21/24 05:42 Pulse Rate 77 03/21/24 08:02 Respiratory Rate 14 03/21/24 05:50 Blood Pressure 169/122 03/21/24 05:50 Pulse Oximetry 100 03/21/24 08:02 Oxygen Delivery Me thod Room Air 03/21/24 05:50 MDM - Chest Pain Medical Records I reviewed the patient's medical records. Lab Data I reviewed the patient's lab results. 03/21/24 05:43 03/21/24 05:43 Radiology Impressions Chest X-Ray 03/21/24 05:40 IMPRESSION: No acute findings. Laboratory Results WBC 11.80 10^3/uL (3.29-11.43) H 03/21/24 05:43 RBC 4.64 10^6/uL (3.85-5.65) 03/21/24 05:43 Hgb 13.10 g/dL (11.27-16.99) 03/21/24 05:43 Hct 40.4 % (36-47) 03/21/24 05:43 MCV 87.1 fl (85-98) 03/21/24 05:43 MCH 28.2 pg (27-33) 03/21/24 05:43 MCHC 32.4 g/dL (30-55) 03/21/24 05:43 RDW 12.7 % (12.1-15.1) 03/21/24 05:43 Plt Count 256 10^3/cmm (157-399) 03/21/24 05:43 MPV 9.9 fL (7.4-10.4) 03/21/24 05:43 Neut % (Auto) 63.9 % 03/21/24 05:43 Lymph % (Auto) 26.4 % 03/21/24 05:43 Jerome % (Auto) 8.3 % 03/21/24 05:43 Eos % (Auto) 0.6 % 03/21/24 05:43 Baso % (Auto) 0.5 % 03/21/24 05:43 Neut # (Auto) 7.53 10^3/uL (1.8-7.7) 03/21/24 05:43 Lymph # (Auto) 3.1 10^3/uL (0.8-4.8) 03/21/24 05:43 Jerome # (Auto) 1.0 10^3/uL (0.2-0.9) H 03/21/24 05:43 Eos # (Auto) 0.1 10^3/uL (0.0-0.8) 03/21/24 05:43 Baso # (Auto) 0.1 10^3/uL (0.0-0.1) 03/21/24 05:43 Nucleated RBC % (auto) 0 % 03/21/24 05:43 Nucleated RBCs # 0.0 /100WBC 03/21/24 05:43 Sodium 136 mmol/L (136-145) 03/21/24 05:43 Potassium 3.8 mmol/L (3.5-5.1) 03/21/24 05:43 Chloride 102 mmol/L (98-107) 03/21/24 05:43 Carbon Dioxide 24 mmol/L (22-29) 03/21/24 05:43 Anion Gap 13.8 (5-19) 03/21/24 05:43 BUN 12 mg/dL (6-20) 03/21/24 05:43 Creatinine 0.8 mg/dL (0.5-0.9) 03/21/24 05:43 GFR Calculation 78.7 mL/min (90-130) L 03/21/24 05:43 Glucose 93 mg/dL (65-115) 03/21/24 05:43 Calculated Osmolality 281 mOsm/kg (285-295) L 03/21/24 05:43 Calcium 9.3 mg/dL (8.5-10.5) 03/21/24 05:43 Magnesium 2.0 mg/dL (1.7-2.3) 03/21/24 05:43 Total Bilirubin 0.2 mg/dL (0.15-1.2) 03/21/24 05:43 AST 11 U/L (0-32) 03/21/24 05:43 ALT 9 U/L (0-33) 03/21/24 05:43 Alkaline Phosphatase 81 U/L (35-105) 03/21/24 05:43 Troponin T Baseline < 6 ng/L (0-10) 03/21/24 05:43 Troponin T 120 Minute 6.00 ng/L (0-10) 03/21/24 08:12 Delta Troponin T 0.41528 ABS# (0-10) 03/21/24 08:12 Total Protein 8.2 g/dL (6.6-8.7) 03/21/24 05:43 Albumin 4.6 g/dL (3.5-5.2) 03/21/24 05:43 Globulin 3.6 g/dL (1.3-4.6) 03/21/24 05:43 TSH 24.92 uIU/mL (0.27-4.20) H 03/21/24 05:43 All radiology interpretation(s) finalized by discharge Discharge Plan Discharge Patient Disposition: Home Clinical Impression: Hypothyroidism, Palpitation Condition: Stable Prescriptions: No Action fluticasone propionate [Allergy Relief (fluticasone)] 50 mcg/actuation spray,suspension 1 spray intranasal TID Rx Instructions: administer into each nostril lorazepam 0.5 mg tablet 0.5 mg PO DAILY PRN (Reason: anxiety) Qty: 10 0RF levothyroxine 50 mcg tablet 50 mcg PO DAILY Qty: 90 1RF Rx Instructions: Take on empty stomach with a full glass of water and wait 30 minutes before eating. Discharge Orders: Discharge ED (Routine); Ordered 03/21/24 Ordered By: Satinder Holloway Referrals: Noah Fernandez DO [Primary Care Provider] - Discharge Diet: Usual diet Discharge Activity: Resume usual activity Patient Instructions: Opioid Safety, Pain Management Activity Restrictions/Additional Instructions: As we discussed while you are in the emergency department there is no indication at this time that there is a serious cause for your your symptoms other than you have not adequately been replaced on your thyroid hormone. We recommend increasing to 75 mcg daily which is 1-1/2 of your 50 mcg tablets. Follow-up with your regular doctor in approximately 4 to 5 weeks for repeat blood test. If you develop any new or worsening symptoms you are welcome to return to the emergency department for reevaluation. Coding Level of Care Code ED Store Associate for [employer] Documented by User: Satinder Holloway DO 03/21/24 08:54 HPI - Chest Pain 2 General: Chief Complaint: Chest Pain Stated Complaint: CP Time Seen by Provider: 03/21/24 05:40 [facility] ED 2 PFSH: Medical History Graves disease Thyroid toxicity, exogenous Hx of meningitis Menorrhagia Hypothyroidism Surgical History History of section, low transverse Social History Smoking and tobacco/nicotine status: current every day tobacco/nicotine user e- cigarettes E-Cigarette Details: vaporizer device and with nicotine Second hand smoke exposure: No Alcohol intake: current Alcohol intake frequency: holidays/special occasions only Substance/Drug Use: current Substance/Drug use frequency: daily Course 2 Reevaluation(s): Reevaluation #1: Assumed care from Dr. Ji overnight ED physician. Patient is being evaluated for palpitations and chest discomfort. I briefly interviewed her and she states that she has been having intermittent episodes of palpitations for many years since her thyroid was removed in the 20s however its increased in intensity and duration over the past several weeks. Today she experienced palpitations with some chest discomfort and that prompted her to come to the emergency department. She vapes but does not use other tobacco products or alcohol. She takes Sudafed for rhinitis but has taken that for many years. She has had no recent change in her Synthroid dosing. She does have a family history of cardiovascular disease. Laboratories and imaging are pending at this time. Clinically stable. Time: 06:20 Reevaluation #2: Reviewed findings with patient. Her TSH is markedly elevated indicating she is under replaced. She states that approximately 6 weeks ago she had her thyroid dose increased to 50 mcg from a longstanding level of 25 mcg. Her initial troponin and EKG are reassuring. She did not have a long duration of chest pain this we will get a second troponin to ensure as lower risk of ACS is possible however I think this is unlikely at this time. Time: 07:34 Reevaluation #3: Second troponin unremarkable. I discussed current findings likely etiology of her symptoms and plan of care. Will increase her Synthroid to a total of 75 mcg and then have her TSH rechecked at her primary care doctor. She will not require an additional prescription at this time. We also discussed return precautions. Stable at this time for discharge. Time: 08:50 Vital Signs: Vital signs: Vital Signs Temperature 98.3 F 03/21/24 05:42 Pulse Rate 77 03/21/24 08:02 Respiratory Rate 14 03/21/24 05:50 Blood Pressure 169/122 03/21/24 05:50 Pulse Oximetry 100 03/21/24 08:02 Oxygen Delivery Me thod Room Air 03/21/24 05:50 MDM - Chest Pain Medical Decision Making This patient presented to the emergency department because of concerns about increasing frequency and duration of palpitations and chest discomfort. She has a history of hypothyroidism in the past and due to surgically corrected Graves' disease. She has had no history of cardiovascular problems although she is experienced these symptoms for some time but seem to increase in frequency. No risk factors for infection such as cough fever etc. No risk factors for thromboembolic disease. No history of cardiovascular disease. Medical exam was unremarkable and workup ensued to ensure no evidence of ACS, occult pneumonia etc. as etiology of her chest pain. Remained clinically stable while in the emergency department and only significant finding was an elevated TSH indicative of inadequate thyroid replacement. We will plan on increasing her Synthroid dose and have her follow-up with her primary care doctor. Lab Data 03/21/24 05:43 03/21/24 05:43 Radiology Impressions Chest X-Ray 03/21/24 05:40 IMPRESSION: No acute findings. Laboratory Results WBC 11.80 10^3/uL (3.29-11.43) H 03/21/24 05:43 RBC 4.64 10^6/uL (3.85-5.65) 03/21/24 05:43 Hgb 13.10 g/dL (11.27-16.99) 03/21/24 05:43 Hct 40.4 % (36-47) 03/21/24 05:43 MCV 87.1 fl (85-98) 03/21/24 05:43 MCH 28.2 pg (27-33) 03/21/24 05:43 MCHC 32.4 g/dL (30-55) 03/21/24 05:43 RDW 12.7 % (12.1-15.1) 03/21/24 05:43 Plt Count 256 10^3/cmm (157-399) 03/21/24 05:43 MPV 9.9 fL (7.4-10.4) 03/21/24 05:43 Neut % (Auto) 63.9 % 03/21/24 05:43 Lymph % (Auto) 26.4 % 03/21/24 05:43 Jerome % (Auto) 8.3 % 03/21/24 05:43 Eos % (Auto) 0.6 % 03/21/24 05:43 Baso % (Auto) 0.5 % 03/21/24 05:43 Neut # (Auto) 7.53 10^3/uL (1.8-7.7) 03/21/24 05:43 Lymph # (Auto) 3.1 10^3/uL (0.8-4.8) 03/21/24 05:43 Jerome # (Auto) 1.0 10^3/uL (0.2-0.9) H 03/21/24 05:43 Eos # (Auto) 0.1 10^3/uL (0.0-0.8) 03/21/24 05:43 Baso # (Auto) 0.1 10^3/uL (0.0-0.1) 03/21/24 05:43 Nucleated RBC % (auto) 0 % 03/21/24 05:43 Nucleated RBCs # 0.0 /100WBC 03/21/24 05:43 Sodium 136 mmol/L (136-145) 03/21/24 05:43 Potassium 3.8 mmol/L (3.5-5.1) 03/21/24 05:43 Chloride 102 mmol/L (98-107) 03/21/24 05:43 Carbon Dioxide 24 mmol/L (22-29) 03/21/24 05:43 Anion Gap 13.8 (5-19) 03/21/24 05:43 BUN 12 mg/dL (6-20) 03/21/24 05:43 Creatinine 0.8 mg/dL (0.5-0.9) 03/21/24 05:43 GFR Calculation 78.7 mL/min (90-130) L 03/21/24 05:43 Glucose 93 mg/dL (65-115) 03/21/24 05:43 Calculated Osmolality 281 mOsm/kg (285-295) L 03/21/24 05:43 Calcium 9.3 mg/dL (8.5-10.5) 03/21/24 05:43 Magnesium 2.0 mg/dL (1.7-2.3) 03/21/24 05:43 Total Bilirubin 0.2 mg/dL (0.15-1.2) 03/21/24 05:43 AST 11 U/L (0-32) 03/21/24 05:43 ALT 9 U/L (0-33) 03/21/24 05:43 Alkaline Phosphatase 81 U/L (35-105) 03/21/24 05:43 Troponin T Baseline < 6 ng/L (0-10) 03/21/24 05:43 Troponin T 120 Minute 6.00 ng/L (0-10) 03/21/24 08:12 Delta Troponin T 0.03201 ABS# (0-10) 03/21/24 08:12 Total Protein 8.2 g/dL (6.6-8.7) 03/21/24 05:43 Albumin 4.6 g/dL (3.5-5.2) 03/21/24 05:43 Globulin 3.6 g/dL (1.3-4.6) 03/21/24 05:43 TSH 24.92 uIU/mL (0.27-4.20) H 03/21/24 05:43 Discharge Plan Discharge Patient Disposition: Home Clinical Impression: Hypothyroidism, Palpitation Condition: Stable Prescriptions: No Action fluticasone propionate [Allergy Relief (fluticasone)] 50 mcg/actuation spray,suspension 1 spray intranasal TID Rx Instructions: administer into each nostril lorazepam 0.5 mg tablet 0.5 mg PO DAILY PRN (Reason: anxiety) Qty: 10 0RF levothyroxine 50 mcg tablet 50 mcg PO DAILY Qty: 90 1RF Rx Instructions: Take on empty stomach with a full glass of water and wait 30 minutes before eating. Discharge Orders: Discharge ED (Routine); Ordered 03/21/24 Ordered By: Satinder Holloway Referrals: Noah Fernandez DO [Primary Care Provider] - Discharge Diet: Usual diet Discharge Activity: Resume usual activity Patient Instructions: Opioid Safety, Pain Management Activity Restrictions/Additional Instructions: As we discussed while you are in the emergency department there is no indication at this time that there is a serious cause for your your symptoms other than you have not adequately been replaced on your thyroid hormone. We recommend increasing to 75 mcg daily which is 1-1/2 of your 50 mcg tablets. Follow-up with your regular doctor in approximately 4 to 5 weeks for repeat blood test. If you develop any new or worsening symptoms you are welcome to return to the emergency department for reevaluation. Coding Level of Care Code ED Store Associate for [employer]
[2024-03-21 05:50] VITALS: BP 169/122; PULSE 84; RESP 14; O2SAT 100
[2024-03-21 05:53] LABS: Basophils # 0.1 10^3/uL (0.0-0.1); Basophils % 0.5 %; Eosinophils # 0.1 10^3/uL (0.0-0.8); Eosinophils % 0.6 %; Hematocrit 40.4 % (36-47); Lymphocytes # 3.1 10^3/uL (0.8-4.8); Lymphocytes % 26.4 %; Mean Corpuscular HGB Conc 32.4 g/dL (30-55); Mean Corpuscular Hemoglobin 28.2 pg (27-33); Mean Corpuscular Volume 87.1 fl (85-98); Mean Platelet Volume 9.9 fL (7.4-10.4); Monocytes % 8.3 %; Neutrophils # 7.53 10^3/uL (1.8-7.7); Neutrophils % 63.9 %; Nucleated Red Blood Cells % 0 %; Platelet Count 256 10^3/cmm (157-399); Red Blood Count 4.64 10^6/uL (3.85-5.65); Red Cell Distribution Width 12.7 % (12.1-15.1)
[2024-03-21 06:17] LABS: Troponin(5th) Baseline < 6 ng/L (0-10)
[2024-03-21 06:29] LABS: Alanine Aminotransferase 9 U/L (0-33); Albumin Level 4.6 g/dL (3.5-5.2); Alkaline Phosphatase 81 U/L (35-105); Anion Gap 13.8 (5-19); Aspartate Amino Transferase 11 U/L (0-32); Blood Urea Nitrogen 12 mg/dL (6-20); Calcium 9.3 mg/dL (8.5-10.5); Carbon Dioxide 24 mmol/L (22-29); Chloride 102 mmol/L (98-107); Creatinine Clr Calc Pharmacy 107.8689; Globulin 3.6 g/dL (1.3-4.6); Glomerular Filtration Rate 78.7 mL/min (90-130); Glucose 93 mg/dL (65-115); Osmolality Calculated 281 mOsm/kg (285-295); Potassium 3.8 mmol/L (3.5-5.1); Sodium 136 mmol/L (136-145); Thyroid Stimulating Hormone 24.92 uIU/mL (0.27-4.20); Total Bilirubin 0.2 mg/dL (0.15-1.2); Total Protein 8.2 g/dL (6.6-8.7)
[2024-03-21 08:02] VITALS: PULSE 77; O2SAT 100
[2024-03-21 08:37] LABS: Troponin 5 2HR Delta 0.00001 ABS# (0-10)
[2024-03-21 09:07] VITALS: BP 145/82; PULSE 75; O2SAT 100
== END 2024-03-21 09:07 | disposition home or self-care (01) ==
PROVIDERS: Emergency Provider Emergency Medicine; PCP Family Medicine
DX: R00.2 Palpitations (principal); E03.9 Hypothyroidism, unspecified; F17.290 Nicotine dependence, other tobacco product, uncomplicated
CPT/HCPCS: 36415; 71045; 80053; 83735; 84443; 84484; 85025; 93005; 99285

== ENCOUNTER 2024-04-11 20:38 | Emergency (ER) | payer OTHER, SELFPAY ==
[2024-04-11 20:48] VITALS: BP 154/104; PULSE 74; RESP 17; TEMP 36.7; O2SAT 99; BMI 36.3
--- NOTE | 2024-04-11 21:53 | XRR_ITS ---
PROCEDURE INFORMATION: Exam: XR Soft Tissue Neck Exam date and time: 04/11/2024 9:59 PM Age: 44 years old Clinical indication: Dysphagia / difficulty swallowing; Prior surgery; Surgery date: 6+ months; Surgery type: Thyroidectomy; Patient HX: C/O throat pain with dysphagia. Currently being treated for strep. ; Additional info: Strep throat, neck pain, trouble swallowing TECHNIQUE: Imaging protocol: Radiologic exam of the soft tissues of the neck. COMPARISON: CR (CHEST, ) 03/21/2024 5:55 AM FINDINGS: Airway: Normal. No abnormal narrowing. Soft tissues: Normal. Normal epiglottis. Bones/joints: Unremarkable. XR/XR soft tissue neck [id number] IMPRESSION: No acute findings.
--- NOTE | 2024-04-11 22:00 | ED_ITS ---
Documented by User: [email or web address] Ang 04/11/24 23:22 HPI - Headache 2 General: Chief Complaint: Headache Stated Complaint: neck/head pain Time Seen by Provider: 04/11/24 21:45 Source: patient Mode of arrival: ambulatory Limitations: no limitations History of Present Illness: Patient is a 44-year-old female who presents to the emergency department complaining of headache onset today. Patient recently diagnosed with strep throat and started on amoxicillin, states she got concerned when yesterday she felt it was harder to breathe and now she is having left lateral neck pain. She states that it radiates up to her head and has been increasing in pain throughout the day. She is continue to take her antibiotic, and states her sore throat has improved. She does note a history of meningitis and is also concerned of this. She denies any fever, respiratory difficulties, chest pain, visual changes, peripheral numbness, weakness, tingling, or other concerning symptoms at this time. She does note a history of migraine headaches and states this feels similar but not quite. MD elicited complaint: headache Onset description: suddenly Location: left and down into neck Severity: severe Exacerbating factors: movement of head/neck Relieving factors: nothing Context: other (Recent diagnosis of strep throat) Associated symptoms: Deny chest pain, fever(s), lightheadedness, nausea, rash or vomiting Review of Systems 2 General: Reports: 10 or more systems reviewed and unremarkable except in HPI and below Const: Denies: fever(s), chills or fatigue Eyes: Denies: change in vision ENMT: Reports: odynophagia; Denies: throat pain, ear or mastoid pain or nasal discharge Card: Denies: chest pain, palpitations, swelling of feet/ankles or lightheadedness Resp: Denies: dyspnea, productive cough or wheezing GI: Denies: abdominal pain, nausea, vomiting, diarrhea or constipation : Denies: flank pain, difficulty voiding, dysuria or urinary frequency Musc: Reports: neck pain; Denies: back pain or joint pain Skin/Breast: Denies: rash Neuro: Reports: headache(s); Denies: numbness in extremities or weakness in extremities PFSH ED 2 PFSH: Medical History Graves disease Thyroid toxicity, exogenous Hx of meningitis Menorrhagia Hypothyroidism Surgical History History of section, low transverse Social History Smoking and tobacco/nicotine status: current every day tobacco/nicotine user e- cigarettes E-Cigarette Details: vaporizer device and with nicotine Second hand smoke exposure: No Alcohol intake: current Alcohol intake frequency: holidays/special occasions only Substance/Drug Use: current Substance/Drug use frequency: daily Female Reproductive History: Spontaneous abortions: No Physical Exam 2 Const: COMMON NORMALS: no acute distress, patient oriented x3 and no limitations GENERAL APPEARANCE: cooperative, comfortable and well developed ORIENTATION/CONSCIOUSNESS: Yes awake, Yes oriented to person, Yes oriented to place and Yes oriented to time HENMT: COMMON NORMALS: normocephalic, atraumatic and hearing grossly normal bilaterally HEAD & SCALP: normocephalic and atraumatic OTHER: Posterior oropharynx normal with no exudates or tonsillar edema Eye: COMMON NORMALS: Equal, round and reactive pupils present, EOMs intact bilaterally and conjunctivae normal CONJUNCTIVA: Yes conjunctivae normal P UPIL: Yes Equal, round and reactive pupils present Neck/C-Spine: COMMON NORMALS: full ROM, supple and no JVD CERVICAL SPINE: Y es pain with cervical ROM and Yes Paracervical muscle tenderness left OTHER: Negative Kernig's and Brudzinski Resp: COMMON NORMALS: normal respiratory effort, No retractions, No use of accessory muscles and clear to auscultation bilaterally AUSCULTATION: clear to auscultation bilaterally Cardio: COMMON NORMALS: no JVD, regular rate, regular rhythm, No clicks present (Cardio), No murmurs present (Cardio) and No rub (Cardio) RATE: r egular rate RHYTHM: regular rhythm : COMMON NORMALS: Yes no CVA tenderness BLADDER/KIDNEY EXAM: Yes no CVA tenderness Back/Pelvis: COMMON NORMALS: no CVA tenderness, thoracic and lumbar spine normal to inspection, no thoracic nor lumbar tenderness and thoraco-lumbar ROM normal Extremity: COMMON NORMALS: normal to inspection, full ROM and capillary refill normal Neuro: COMMON NORMALS: patient oriented x3, CN's II-XII intact bilaterally, moves all extremities, no focal motor deficits and no sensory deficits noted SENSORIUM/ORIENTATION: Yes oriented to person, Yes oriented to place and Yes oriented to time Psych: COMMON NORMALS: mental status grossly normal and Normal thought process present THOUGHT PROCESS: Normal thought process present Skin: COMMON NORMALS: no rashes or lesions noted GENERAL SKIN EXAM: no rashes or lesions noted Course 2 Vital Signs: Vital signs: Vital Signs Temperature 98.1 F 04/11/24 20:48 Pulse Rate 84 04/11/24 23:34 Respiratory Rate 16 04/11/24 23:34 Blood Pressure 154/104 04/11/24 20:48 Pulse Oximetry 97 04/11/24 23:34 Oxygen Delivery Me thod Room Air 04/11/24 20:48 MDM - Headache Medical Decision Making Patient presented with acute onset of neck pain and headache. Recently diagnosed with strep throat and is on amoxicillin currently. Did states she had an episode of trouble swallowing yesterday, I did order a soft tissue x-ray of the neck that did not demonstrate any sign of retropharyngeal abscess or other concerning signs. Did some basic lab work to rule out any signs of infection, blood work negative. Due to historical findings of reproducible palpation to the left paracervical muscles that radiates up into the head, I do believe patient is dealing with a tension type headache. Did give her a migraine cocktail she notes that her pain is much improved. She does have muscle relaxers at home that she will continue to take, and strict return precautions were given. Patient will continue taking her amoxicillin and follow-up with primary care next week. Lab Data 04/11/24 22:05 04/11/24 22:05 Radiology Impressions Soft Tissue Neck X-Ray 04/11/24 21:53 IMPRESSION: No acute findings. Laboratory Results WBC 10.47 10^3/uL (3.29-11.43) 04/11/24 22:05 RBC 4.60 10^6/uL (3.85-5.65) 04/11/24 22:05 Hgb 12.80 g/dL (11.27-16.99) 04/11/24 22:05 Hct 39.5 % (36-47) 04/11/24 22:05 MCV 85.9 fl (85-98) 04/11/24 22:05 MCH 27.8 pg (27-33) 04/11/24 22:05 MCHC 32.4 g/dL (30-55) 04/11/24 22:05 RDW 12.6 % (12.1-15.1) 04/11/24 22:05 Plt Count 314 10^3/cmm (157-399) 04/11/24 22:05 MPV 9.5 fL (7.4-10.4) 04/11/24 22:05 Neut % (Auto) 56.9 % 04/11/24 22:05 Lymph % (Auto) 33.2 % 04/11/24 22:05 Sutter % (Auto) 7.4 % 04/11/24 22:05 Eos % (Auto) 1.1 % 04/11/24 22:05 Baso % (Auto) 0.5 % 04/11/24 22:05 Neut # (Auto) 5.96 10^3/uL (1.8-7.7) 04/11/24 22:05 Lymph # (Auto) 3.5 10^3/uL (0.8-4.8) 04/11/24 22:05 Sutter # (Auto) 0.8 10^3/uL (0.2-0.9) 04/11/24 22:05 Eos # (Auto) 0.1 10^3/uL (0.0-0.8) 04/11/24 22:05 Baso # (Auto) 0.1 10^3/uL (0.0-0.1) 04/11/24 22:05 Nucleated RBC % (auto) 0 % 04/11/24 22:05 Nucleated RBCs # 0.0 /100WBC 04/11/24 22:05 Sodium 138 mmol/L (136-145) 04/11/24 22:05 Potassium 3.9 mmol/L (3.5-5.1) 04/11/24 22:05 Chloride 103 mmol/L (98-107) 04/11/24 22:05 Carbon Dioxide 23 mmol/L (22-29) 04/11/24 22:05 Anion Gap 15.9 (5-19) 04/11/24 22:05 BUN 13 mg/dL (6-20) 04/11/24 22:05 Creatinine 0.7 mg/dL (0.5-0.9) 04/11/24 22:05 GFR Calculation 91.8 mL/min (90-130) 04/11/24 22:05 Glucose 101 mg/dL (65-115) 04/11/24 22:05 Calculated Osmolality 286 mOsm/kg (285-295) 04/11/24 22:05 Calcium 9.1 mg/dL (8.5-10.5) 04/11/24 22:05 Total Bilirubin 0.2 mg/dL (0.15-1.2) 04/11/24 22:05 AST 11 U/L (0-32) 04/11/24 22:05 ALT 14 U/L (0-33) 04/11/24 22:05 Alkaline Phosphatase 74 U/L (35-105) 04/11/24 22:05 Total Protein 7.7 g/dL (6.6-8.7) 04/11/24 22:05 Albumin 4.1 g/dL (3.5-5.2) 04/11/24 22:05 Globulin 3.6 g/dL (1.3-4.6) 04/11/24 22:05 All radiology interpretation(s) finalized by discharge Discharge Plan Discharge Patient Disposition: Home Clinical Impression: Tension headache Condition: Stable Prescriptions: New prednisone 20 mg tablet 60 mg PO ONCE 5 Days Qty: 15 0RF No Action fluticasone propionate [Allergy Relief (fluticasone)] 50 mcg/actuation spray,suspension 1 spray intranasal TID Rx Instructions: administer into each nostril lorazepam 0.5 mg tablet 0.5 mg PO DAILY PRN (Reason: anxiety) Qty: 10 0RF levothyroxine 75 mcg tablet 75 mcg PO DAILY Qty: 90 1RF tizanidine 4 mg tablet 4 mg PO BID PRN (Reason: muscle spasticity) Qty: 60 2RF chlorthalidone 25 mg tablet 25 mg PO DAILY Qty: 90 1RF amoxicillin 875 mg tablet 875 mg PO BID 7 Days Qty: 14 0RF Discharge Orders: Discharge ED (Routine); Ordered 04/11/24 Ordered By: Humberto Garcia Referrals: Noah Fernandez DO [Primary Care Provider] - Discharge Diet: Usual diet Discharge Activity: Increase activity as tolerated Patient Instructions: Tension Headache (ED) Activity Restrictions/Additional Instructions: Continue your muscle relaxers at home. Steroid as prescribed. Plenty of fluids. If you develop any new or concerning symptoms please return for reevaluation. Follow-up with primary care. Coding Level of Care Code ED Is Manager for [facility] Documented by User: Edward Ding, 04/13/24 16:58 HPI - Headache 2 General: Chief Complaint: Headache Stated Complaint: neck/head pain Time Seen by Provider: 04/11/24 21:45 PFSH ED 2 PFSH: Medical History Graves disease Thyroid toxicity, exogenous Hx of meningitis Menorrhagia Hypothyroidism Surgical History History of section, low transverse Social History Smoking and tobacco/nicotine status: current every day tobacco/nicotine user e- cigarettes E-Cigarette Details: vaporizer device and with nicotine Second hand smoke exposure: No Alcohol intake: current Alcohol intake frequency: holidays/special occasions only Substance/Drug Use: current Substance/Drug use frequency: daily Course 2 Vital Signs: Vital signs: Vital Signs Temperature 98.1 F 04/11/24 20:48 Pulse Rate 84 04/11/24 23:34 Respiratory Rate 16 04/11/24 23:34 Blood Pressure 154/104 04/11/24 20:48 Pulse Oximetry 97 04/11/24 23:34 Oxygen Delivery Me thod Room Air 04/11/24 20:48 MDM - Headache Medical Decision Making Patient presented with acute onset of neck pain and headache. Recently diagnosed with strep throat and is on amoxicillin currently. Did states she had an episode of trouble swallowing yesterday, I did order a soft tissue x-ray of the neck that did not demonstrate any sign of retropharyngeal abscess or other concerning signs. Did some basic lab work to rule out any signs of infection, blood work negative. Due to historical findings of reproducible palpation to the left paracervical muscles that radiates up into the head, I do believe patient is dealing with a tension type headache. Did give her a migraine cocktail she notes that her pain is much improved. She does have muscle relaxers at home that she will continue to take, and strict return precautions were given. Patient will continue taking her amoxicillin and follow-up with primary care next week. Chart reviewed Lab Data 04/11/24 22:05 04/11/24 22:05 Radiology Impressions Soft Tissue Neck X-Ray 04/11/24 21:53 IMPRESSION: No acute findings. Laboratory Results WBC 10.47 10^3/uL (3.29-11.43) 04/11/24 22:05 RBC 4.60 10^6/uL (3.85-5.65) 04/11/24 22:05 Hgb 12.80 g/dL (11.27-16.99) 04/11/24 22:05 Hct 39.5 % (36-47) 04/11/24 22:05 MCV 85.9 fl (85-98) 04/11/24 22:05 MCH 27.8 pg (27-33) 04/11/24 22:05 MCHC 32.4 g/dL (30-55) 04/11/24 22:05 RDW 12.6 % (12.1-15.1) 04/11/24 22:05 Plt Count 314 10^3/cmm (157-399) 04/11/24 22:05 MPV 9.5 fL (7.4-10.4) 04/11/24 22:05 Neut % (Auto) 56.9 % 04/11/24 22:05 Lymph % (Auto) 33.2 % 04/11/24 22:05 Sutter % (Auto) 7.4 % 04/11/24 22:05 Eos % (Auto) 1.1 % 04/11/24 22:05 Baso % (Auto) 0.5 % 04/11/24 22:05 Neut # (Auto) 5.96 10^3/uL (1.8-7.7) 04/11/24 22:05 Lymph # (Auto) 3.5 10^3/uL (0.8-4.8) 04/11/24 22:05 Sutter # (Auto) 0.8 10^3/uL (0.2-0.9) 04/11/24 22:05 Eos # (Auto) 0.1 10^3/uL (0.0-0.8) 04/11/24 22:05 Baso # (Auto) 0.1 10^3/uL (0.0-0.1) 04/11/24 22:05 Nucleated RBC % (auto) 0 % 04/11/24 22:05 Nucleated RBCs # 0.0 /100WBC 04/11/24 22:05 Sodium 138 mmol/L (136-145) 04/11/24 22:05 Potassium 3.9 mmol/L (3.5-5.1) 04/11/24 22:05 Chloride 103 mmol/L (98-107) 04/11/24 22:05 Carbon Dioxide 23 mmol/L (22-29) 04/11/24 22:05 Anion Gap 15.9 (5-19) 04/11/24 22:05 BUN 13 mg/dL (6-20) 04/11/24 22:05 Creatinine 0.7 mg/dL (0.5-0.9) 04/11/24 22:05 GFR Calculation 91.8 mL/min (90-130) 04/11/24 22:05 Glucose 101 mg/dL (65-115) 04/11/24 22:05 Calculated Osmolality 286 mOsm/kg (285-295) 04/11/24 22:05 Calcium 9.1 mg/dL (8.5-10.5) 04/11/24 22:05 Total Bilirubin 0.2 mg/dL (0.15-1.2) 04/11/24 22:05 AST 11 U/L (0-32) 04/11/24 22:05 ALT 14 U/L (0-33) 04/11/24 22:05 Alkaline Phosphatase 74 U/L (35-105) 04/11/24 22:05 Total Protein 7.7 g/dL (6.6-8.7) 04/11/24 22:05 Albumin 4.1 g/dL (3.5-5.2) 04/11/24 22:05 Globulin 3.6 g/dL (1.3-4.6) 04/11/24 22:05 Discharge Plan Discharge Patient Disposition: Home Clinical Impression: Tension headache Condition: Stable Prescriptions: New prednisone 20 mg tablet 60 mg PO ONCE 5 Days Qty: 15 0RF No Action fluticasone propionate [Allergy Relief (fluticasone)] 50 mcg/actuation spray,suspension 1 spray intranasal TID Rx Instructions: administer into each nostril lorazepam 0.5 mg tablet 0.5 mg PO DAILY PRN (Reason: anxiety) Qty: 10 0RF levothyroxine 75 mcg tablet 75 mcg PO DAILY Qty: 90 1RF tizanidine 4 mg tablet 4 mg PO BID PRN (Reason: muscle spasticity) Qty: 60 2RF chlorthalidone 25 mg tablet 25 mg PO DAILY Qty: 90 1RF amoxicillin 875 mg tablet 875 mg PO BID 7 Days Qty: 14 0RF Discharge Orders: Discharge ED (Routine); Ordered 04/11/24 Ordered By: Humberto Garcia Referrals: Noah Fernandez DO [Primary Care Provider] - Discharge Diet: Usual diet Discharge Activity: Increase activity as tolerated Patient Instructions: Tension Headache (ED) Activity Restrictions/Additional Instructions: Continue your muscle relaxers at home. Steroid as prescribed. Plenty of fluids. If you develop any new or concerning symptoms please return for reevaluation. Follow-up with primary care. Coding Level of Care Code ED Is Manager for [employer]
[2024-04-11 22:07] LABS: Basophils # 0.1 10^3/uL (0.0-0.1); Basophils % 0.5 %; Eosinophils # 0.1 10^3/uL (0.0-0.8); Eosinophils % 1.1 %; Hematocrit 39.5 % (36-47); Lymphocytes # 3.5 10^3/uL (0.8-4.8); Lymphocytes % 33.2 %; Mean Corpuscular HGB Conc 32.4 g/dL (30-55); Mean Corpuscular Hemoglobin 27.8 pg (27-33); Mean Corpuscular Volume 85.9 fl (85-98); Mean Platelet Volume 9.5 fL (7.4-10.4); Monocytes # 0.8 10^3/uL (0.2-0.9); Monocytes % 7.4 %; Neutrophils # 5.96 10^3/uL (1.8-7.7); Neutrophils % 56.9 %; Nucleated Red Blood Cells % 0 %; Platelet Count 314 10^3/cmm (157-399); Red Cell Distribution Width 12.6 % (12.1-15.1); White Blood Count 10.47 10^3/uL (3.29-11.43)
[2024-04-11] MEDS: sodium chloride 0.9% 1,000 ML 999 ML IV (22:28)
[2024-04-11 22:29] LABS: Alanine Aminotransferase 14 U/L (0-33); Albumin Level 4.1 g/dL (3.5-5.2); Alkaline Phosphatase 74 U/L (35-105); Anion Gap 15.9 (5-19); Aspartate Amino Transferase 11 U/L (0-32); Blood Urea Nitrogen 13 mg/dL (6-20); Calcium 9.1 mg/dL (8.5-10.5); Carbon Dioxide 23 mmol/L (22-29); Chloride 103 mmol/L (98-107); Creatinine Clr Calc Pharmacy 126.2775; Globulin 3.6 g/dL (1.3-4.6); Glomerular Filtration Rate 91.8 mL/min (90-130); Glucose 101 mg/dL (65-115); Osmolality Calculated 286 mOsm/kg (285-295); Potassium 3.9 mmol/L (3.5-5.1); Sodium 138 mmol/L (136-145); Total Bilirubin 0.2 mg/dL (0.15-1.2); Total Protein 7.7 g/dL (6.6-8.7)
[2024-04-11] MEDS: ketorolac 60 mg/2 mL INJ 30 MG IVP (22:30)
[2024-04-11] MEDS: metoclopramide 5 mg/mL SDV 2 mL 10 MG IVP (22:31)
[2024-04-11] MEDS: dexamethasone 10 mg/mL INJ 8 MG IVP (22:34)
[2024-04-11] MEDS: diphenhydrAMINE 50 mg/mL SDV 1mL IVP (22:38)
[2024-04-11 23:34] VITALS: PULSE 84; RESP 16; O2SAT 97
== END 2024-04-11 23:31 | disposition home or self-care (01) ==
PROVIDERS: Emergency Provider Physician Assistant; PCP Family Medicine
DX: G44.209 Tension-type headache, unspecified, not intractable (principal); F17.290 Nicotine dependence, other tobacco product, uncomplicated
CPT/HCPCS: 70360; 80053; 85025; 96361; 96374; 96375; 99284; J1100; J1200; J1885; J2765; J7030

== ENCOUNTER → 2024-10-01 13:30 | Outpatient (BNVA) | payer OTHER, SELFPAY | PROVIDERS: PCP Family Medicine; Visit Provider Family Medicine | DX: E03.9 Hypothyroidism, unspecified; E87.6 Hypokalemia; I10 Essential (primary) hypertension | CPT/HCPCS: 80048; 84439; 84443 ==

== ENCOUNTER → 2025-06-29 09:45 | Outpatient (BNVA) | payer OTHER, SELFPAY | PROVIDERS: PCP Family Medicine; Visit Provider Family Medicine | DX: E03.9 Hypothyroidism, unspecified (principal); L30.9 Dermatitis, unspecified; F41.1 Generalized anxiety disorder; E55.9 Vitamin D deficiency, unspecified; R79.89 Other specified abnormal findings of blood chemistry; I10 Essential (primary) hypertension | CPT/HCPCS: 80053; 80061; 82306; 82607; 82672; 83001; 84144; 84439; 84443; 85025 ==

== ENCOUNTER → 2025-10-20 12:45 | Outpatient (BNVA) | payer OTHER, SELFPAY | PROVIDERS: PCP Family Medicine; Visit Provider Nurse Practitioner Women's Health | DX: Z12.4 Encounter for screening for malignant neoplasm of cervix (principal) | CPT/HCPCS: 87624 ==